=== PATIENT | female | born 1980 | race Caucasian/White ===

== ENCOUNTER → 2018-02-02 | Outpatient (CLI) | payer OTHER ==
[~2018-02-02] MED LIST: ACETAMINOPHEN500 MG PO; ALBU90OI INH; AMIT25 PO; AMOX500 PO; AZIT250 PO; BENZ100A PO; CODACE30 PO; CODGUAEL PO; CRUTCH3 USE; DICY20 PO; DOXY100; ERGO50000 PO; ETHINYL ESTRADIOL; Estradiol0.5 MG PO; FAMC500 PO; GUAI600ER PO; HORMONE CREAM; HYDACE5 PO; HYDGUAL120 PO; IBUHYD PO; IBUP200; IBUP600 PO; IBUP800 PO; KETO10; LEVONORGESTREL; LORA10ER PO; MAGCIT300 PO; MEDR2.5 PO; META800 PO; METR500; MULVITMINE; NAPR375 PO; NAPR500 PO; NYST100SU MT; OTC COUGH MEDS; OXYACE5T; OXYACE5T PO; PENVK500 PO; PRAV20 PO; PRED20 PO; PREN-16 PO; PROACE100; PROG100 PO; PROM25 PO; Prilosec Otc20 MG PO; RXCODACET PO; RXCODGUASY PO; RXHYDACE PO; RXPROM25 PO; SILSUL1TC TOP; SULTRIDS PO; TRAM50 PO; [UNRECOGNIZED DRUG - OTHER]; [UNRECOGNIZED DRUG - OTHER]; [UNRECOGNIZED DRUG - REMARK]
[2018-02-04 15:07] LABS: HPV 16 Negative (Negative); HPV 18 Negative (Negative); HPV OTHER HR TYPES Negative (Negative)
== END | disposition home or self-care (01) ==
LOC: LAB 18:18 → LAB SHORT 18:18
PROVIDERS: Nurse Practitioner Women's Health
DX: Z12.4 Encounter for screening for malignant neoplasm of cervix (principal); Z91.89 Other specified personal risk factors, not elsewhere classified
CPT/HCPCS: 87624; G0123

== ENCOUNTER → 2018-10-21 | Outpatient (CLI) | payer OTHER | END | disposition home or self-care (01) | LOC: LAB SHORT 17:17 → LAB EV 17:17 | DX: J06.9 Acute upper respiratory infection, unspecified (principal) | CPT/HCPCS: 87081 ==

== ENCOUNTER → 2018-12-29 | Outpatient (CLI) | payer OTHER ==
[2018-12-30 10:00] LABS: Candida species (DNA Probe) Negative (NEGATIVE); G. vaginalis (DNA Probe) Negative (NEGATIVE); T. vaginalis (DNA Probe) Negative (NEGATIVE)
[2019-01-01 06:07] LABS: CHLAMYDIA TRACHOMATIS, NAA Negative (Negative); NEISSERIA GONORRHOEAE, NAA Negative (Negative)
== END | disposition home or self-care (01) ==
LOC: LAB SHORT 19:20 → LAB EV 19:20
PROVIDERS: Physician Assistant
DX: R10.2 Pelvic and perineal pain (principal)
CPT/HCPCS: 87480; 87491; 87510; 87529; 87591; 87660

== ENCOUNTER → 2019-02-02 | Outpatient (CLI) | payer OTHER ==
[2019-02-07 16:06] LABS: HPV 16 Negative (Negative); HPV 18 Negative (Negative); HPV OTHER HR TYPES Negative (Negative)
== END | disposition home or self-care (01) ==
LOC: LAB SHORT 16:09 → LAB 16:09
PROVIDERS: Nurse Practitioner Women's Health
DX: Z12.4 Encounter for screening for malignant neoplasm of cervix (principal); Z91.89 Other specified personal risk factors, not elsewhere classified
CPT/HCPCS: 87624; G0123

== ENCOUNTER → 2020-09-27 | Outpatient (CLI) | payer OTHER ==
[2020-10-10 20:06] LABS: CALCIUM OXALATE 2.48 ratio (0.00-6.00); CALCIUM, URINE 22.4 mg/24 hr (100.0-300.0); CALCIUM, URINE 5.6 mg/dL (Not Estab.); CHLORIDE URINE 17 (110-250); CITRIC ACID (CITRATE) 407 mg/L (Not Estab.); CITRIC ACID(CITRATE) 163 mg/24 hr (320-1240); CREATININE, URINE 130.5 mg/dL (Not Estab.); MAGNESIUM, URINE 2.4 mg/dL (Not Estab.); MONOSODIUM URATE 4.25 ratio (0.00-4.00); OSMOLALITY, URINE 315 (300-900); SODIUM, URINE 25 (39-258); SODIUM, URINE 62 mmol/L (Not Estab.); STRUVITE 0.03 ratio (0.00-1.00); URIC ACID 1.08 ratio (0.00-1.20); URINE VOLUME 400 mL/24 hr (600-1600); URINE VOLUME (PRESERVATIVE) 400 mL/24 hr (600-1600)
== END | disposition home or self-care (01) ==
LOC: LAB 13:54 → LAB SHORT 13:54 → LAB FUT 07-11 15:45
PROVIDERS: Urology
DX: N13.2 Hydronephrosis with renal and ureteral calculous obstruction (principal)
CPT/HCPCS: 81003; 82131; 82140; 82340; 82436; 82507; 82570; 83735; 83935; 83945; 84105; 84133; 84300; 84392; 84560

== ENCOUNTER 2021-07-17 06:49 | Day surgery (SDC) | payer OTHER ==
[~2021-07-17] VITALS: Ht 149.9 cm; Wt 61.6 kg
[2021-07-17] MEDS ORDERED: AIMOVIG AU140 MG/1 M SC (08:24)
[2021-07-17] MEDS ORDERED: ESCI20 PO (08:25)
[2021-07-17] MEDS ORDERED: LAMO100 PO (08:25)
--- NOTE | 2021-07-17 08:32 | NUR ---
07/17/21 0832 Michelle Upton CALL LIGHT WITHIN REACH.
--- NOTE | 2021-07-17 09:33 | NUR ---
07/17/21 0933 RISSA MCDANIEL 100ML OF YELLOW/CLEAR URINE DRAINED FROM BLADDER TO LAYTON CATHETER DURING PROCEDURE
--- NOTE | 2021-07-17 10:39 | NUR ---
07/17/21 1039 LAKSHMI UNGER PT STATES PAIN IS TOLERABLE AT TIME OF DC. TAKEN OUT BY WHEELCHAIR TO DC WITH CRYSTAL FRIEND WINCH DRIVER TO DC HOME
== END 2021-07-17 10:39 | disposition home or self-care (01) ==
LOC: ORSCSDS 06:49 → ORD 08:45 → ORSCSDS 08:45
PROVIDERS: Obstetrics & Gynecology
PROC: 0UDB8ZX Extraction of Endometrium, Via Natural or Artificial Opening Endoscopic, Diagnostic (ICD-10-PCS; principal; 2021-07-17 08:45)
DX: N95.0 Postmenopausal bleeding (principal); N85.00 Endometrial hyperplasia, unspecified; F32.A Depression, unspecified; Z79.899 Other long term (current) drug therapy
CPT/HCPCS: 88305; A9270; J0690; J1100; J1885; J2250; J2405; J2704; J3010; J7120

== ENCOUNTER 2022-01-22 05:50 | Day surgery (SDC) | payer OTHER ==
[~2022-01-22] VITALS: Ht 149.9 cm; Wt 67.2 kg
[~2022-01-22 05:50] MED LIST changes: +AIMOVIG AU140 MG/1 M SC; +ESCI20 PO; +LAMO100 PO
[2022-01-22] MEDS ORDERED: Desyrel150 MG PO (06:23)
--- NOTE | 2022-01-22 07:01 | NUR ---
Ambulatory in Day Surgery. Surgical site prepped with 2% Chlorhexidine cloth wipe. History, Chart, Medications and Allergies reviewed before start of procedure. Lungs clear T/O to Auscultation. Patient confirms NPO status and agrees with scheduled surgery. Pre-Op teaching done. Pt verbalizes understanding.
[2022-01-22 07:04] LABS: BASOPHILS ABSOLUTE AUTO 0.04 K/mm3 (0.00-0.23); BASOPHILS PERCENT AUTO 1 % (0-2); EOSINOPHILS ABSOLUTE AUTO 0.53 K/mm3 (0.00-0.68); EOSINOPHILS PERCENT AUTO 7 % (0-6); Hematocrit 35.9 % (33.0-51.0); Hemoglobin 12.4 g/dL (11.5-16.0); IMMATURE GRAN ABSOLUTE AUTO 0.02 K/mm3 (0.00-0.10); IMMATURE GRAN PERCENT AUTO 0 % (0-1); LYMPHOCYTES ABSOLUTE AUTO 2.18 K/mm3 (0.84-5.20); LYMPHOCYTES PERCENT AUTO 27 % (21-46); MONOCYTES ABSOLUTE AUTO 0.39 K/mm3 (0.16-1.47); MONOCYTES PERCENT AUTO 5 % (4-13); Mean Corpuscular HGB Conc 34.5 g/dL (31.5-36.5); Mean Corpuscular Volume 93 fL (80-100); Mean Platelet Volume 10.1 fL (9.1-12.4); NEUTROPHILS ABSOLUTE AUTO 4.94 K/mm3 (1.96-9.15); NEUTROPHILS PERCENT AUTO 61 % (41-73); Platelet Count 247 K/mm3 (150-400); RDW Coefficient Variation 12.1 % (11.7-14.2); RDW Standard Deviation 40.9 fL (35.1-46.3); Red Blood Cell Count 3.88 M/mm3 (3.80-5.20)
--- NOTE | 2022-01-23 00:54 | NUR ---
PAD CHANGE CHANGED JOSE PAD WITH PT, APPLIED WITCH HAZLE PADS AND EPIFOAM. MINIMAL BLEEDING NOTED
--- NOTE | 2022-01-23 04:43 | NUR ---
POD1 FOR LAP HYSTER. JOSE PAD CHANGED 2X T/O THE SHIFT TO EXCHANGE FOR A COLD ONE. WITCH ANKUR AND EPIFOAM APPLIED ALONG WITH NEW JOSE PADS. PT REPORTS RELIEF WITH THESE. MINIMAL BLEEDING NOTED T/O THE NIGHT. X4 LAP SITES ARE C/D/I. PAIN CONTROLLED WITH PERCOCET. LAYTON IN PLACE, DRAINING TO GRAVITY. YELLOW OUTPUT NOTED. PT SLEPT WELL T/O THE NIGHT. TOLLERATING PO INTAKE W/O N/V. PLAN FOR PT TO D/C HOME TODAY. THE PATIENT IS CURRENTLY RESTING IN BED, IN NO DISTRESS, CALL LIGHT IN REACH
[2022-01-23 04:46] LABS: BASOPHILS ABSOLUTE AUTO 0.02 K/mm3 (0.00-0.23); BASOPHILS PERCENT AUTO 0 % (0-2); EOSINOPHILS ABSOLUTE AUTO 0.01 K/mm3 (0.00-0.68); EOSINOPHILS PERCENT AUTO 0 % (0-6); Hematocrit 36.2 % (33.0-51.0); Hemoglobin 12.2 g/dL (11.5-16.0); IMMATURE GRAN ABSOLUTE AUTO 0.03 K/mm3 (0.00-0.10); IMMATURE GRAN PERCENT AUTO 0 % (0-1); LYMPHOCYTES PERCENT AUTO 15 % (21-46); MONOCYTES PERCENT AUTO 5 % (4-13); Mean Corpuscular HGB 31.4 pg (26.0-34.0); Mean Corpuscular HGB Conc 33.7 g/dL (31.5-36.5); Mean Corpuscular Volume 93 fL (80-100); Mean Platelet Volume 10.3 fL (9.1-12.4); NEUTROPHILS ABSOLUTE AUTO 11.08 K/mm3 (1.96-9.15); NEUTROPHILS PERCENT AUTO 80 % (41-73); Platelet Count 267 K/mm3 (150-400); RDW Coefficient Variation 12.1 % (11.7-14.2); RDW Standard Deviation 41.3 fL (35.1-46.3); Red Blood Cell Count 3.89 M/mm3 (3.80-5.20); White Blood Cell Count 13.84 K/mm3 (4.00-11.30)
[2022-01-23] MEDS ORDERED: [UNRECOGNIZED DRUG - OTHER] TOP (10:30)
[2022-01-23] MEDS ORDERED: HYDROCORT-PRAMO30 GM TOP (10:32)
[2022-01-23] MEDS ORDERED: Percocet 5-3251 EACH PO (10:33)
[2022-01-23] MEDS ORDERED: PROM25 PO (10:33)
[2022-01-23] MEDS ORDERED: SIME80CH PO (10:34)
--- NOTE | 2022-01-23 13:15 | NUR ---
DISCHARGE NOTE: PATIENT WAS EDUCATED ON DISCHARGE INSTRUCTIONS. SHE VERBALIZED UNDERSTANDING OF INSTRUCTIONS AND HAD NO FURTHER QUESTION. IV WAS TAKEN OUT AND WNL. PAIN IS MANAGED WITH PO PAIN MEDICATIONS. HER LAP SITES ARE C/D/I. HER JOSE PADS HAVE SCANT AMOUNT OF BLOOD ON THEM. SHE IS AMBULATING INDEP. AND TOLERATING PO INTAKE/PASSING GAS. SHE IS DRESSED AND HAS ITEMS IN THE ROOM GATHERED. PATIENT IS BEING WHEELCHAIRED OUT TO HER SISTERS CAR TO BE TAKEN HOME.
== END 2022-01-23 13:20 | disposition home or self-care (01) ==
LOC: ORSCMMR 05:50 → ORD 07:30 → ORSCMMR 07:30 → SURS 16:32 → ORSCMMR 01-23 13:20
PROVIDERS: Obstetrics & Gynecology
PROC: 0UT74ZZ Resection of Bilateral Fallopian Tubes, Percutaneous Endoscopic Approach (ICD-10-PCS; principal; 2022-01-22 10:30)
PROC: 0UT24ZZ Resection of Bilateral Ovaries, Percutaneous Endoscopic Approach (ICD-10-PCS; principal; 2022-01-22 10:30)
PROC: 0UNF4ZZ Release Cul-de-sac, Percutaneous Endoscopic Approach (ICD-10-PCS; principal; 2022-01-22 10:30)
PROC: 0U8 Female Reproductive System, Division (ICD-10-PCS; principal; 2022-01-22 10:30)
PROC: 0U5F4ZZ Destruction of Cul-de-sac, Percutaneous Endoscopic Approach (ICD-10-PCS; principal; 2022-01-22 10:30)
PROC: 0UT94ZZ Resection of Uterus, Percutaneous Endoscopic Approach (ICD-10-PCS; principal; 2022-01-22 10:30)
DX: N92.0 Excessive and frequent menstruation with regular cycle (principal); N94.6 Dysmenorrhea, unspecified; N80.329 Endometriosis of the posterior cul-de-sac, unspecified depth; N89.5 Stricture and atresia of vagina; R10.2 Pelvic and perineal pain; D25.2 Subserosal leiomyoma of uterus; N83.292 Other ovarian cyst, left side; N83.291 Other ovarian cyst, right side; Z79.899 Other long term (current) drug therapy
CPT/HCPCS: 58571; 58662; 56442; S2900; 36415; 84703; 85025; 86850; 86900; 86901; 88305; 88307; A9270; J0690; J1100; J1885; J2250; J2405; J2704; J3010; J7120

== ENCOUNTER 2022-05-04 23:21 | Emergency (ER) | payer OTHER ==
[~2022-05-04] VITALS: Ht 149.9 cm; Wt 72.6 kg
[~2022-05-04 23:21] MED LIST changes: +Desyrel150 MG PO; +HYDROCORT-PRAMO30 GM TOP; +Percocet 5-3251 EACH PO; +SIME80CH PO; +[UNRECOGNIZED DRUG - OTHER] TOP
== END 2022-05-05 02:07 | disposition home or self-care (01) ==
LOC: ER 23:21
DX: S02.2XXB Fracture of nasal bones, initial encounter for open fracture (principal); W18.09XA Striking against other object with subsequent fall, initial encounter; Z88.0 Allergy status to penicillin; Z79.899 Other long term (current) drug therapy
CPT/HCPCS: 12011; 70486; 72040; 90471; 90714; 99284-25; A9270; J1885

== ENCOUNTER → 2024-02-08 | Outpatient (CLI) | payer OTHER ==
[~2024-02-08] MED LIST changes: +AMOCLA875 PO; +ESTRADIOL1 M1 PO; +GABA100 PO; +LAMICTAL200 MG PO; +METPHE20; +VENL75ER
== END ==
LOC: PLD 10:40 → LAB 10:40 → LAB SHORT 02-10 07:32
DX: L90.0 Lichen sclerosus et atrophicus (principal)
CPT/HCPCS: 88305; 88312

== ENCOUNTER 2024-09-10 20:11 | Emergency (ER) | payer OTHER ==
[~2024-09-10] VITALS: Ht 149.9 cm; Wt 62.6 kg
[2024-09-10 20:17] VITALS: BP 147/82
[2024-09-10] MEDS ORDERED: RX Prepack 6 Tabs Oxycodone 5mg UD ONE (20:50)
== END 2024-09-10 21:11 | disposition home or self-care (01) ==
LOC: ER 20:11
DX: G89.18 Other acute postprocedural pain (principal); Z88.0 Allergy status to penicillin; Z79.899 Other long term (current) drug therapy
CPT/HCPCS: 64405; 99282-25; A9270

== ENCOUNTER → 2024-09-19 | Outpatient (CLI) | payer OTHER | END | disposition home or self-care (01) | LOC: LAB SHORT 18:15 → LAB 18:15 | DX: Z12.4 Encounter for screening for malignant neoplasm of cervix (principal) | CPT/HCPCS: 87624; 88175; G0123 ==

== ENCOUNTER 2024-11-18 18:45 | Emergency (ER) | payer OTHER ==
[~2024-11-18] VITALS: Ht 149.9 cm; Wt 63.5 kg
[2024-11-18 19:25] VITALS: BP 135/94
[2024-11-18] MEDS ORDERED: Dexamethasone Sod Phos 10 MG/ML 1ML VIAL PO ONE (20:45)
[2024-11-18] MEDS ORDERED: CEFDINIR300 M4 PO (21:11)
[2024-11-18] MEDS ORDERED: PSEU120ER PO (21:11)
[2024-11-18] MEDS ORDERED: IBUP600 PO (21:11)
== END 2024-11-18 21:21 | disposition home or self-care (01) ==
LOC: ER 18:45
DX: J01.90 Acute sinusitis, unspecified (principal); H66.93 Otitis media, unspecified, bilateral; J40 Bronchitis, not specified as acute or chronic; Z88.0 Allergy status to penicillin; Z79.899 Other long term (current) drug therapy
CPT/HCPCS: 71046; 99283-25; A9270; J1100